=== PATIENT | female | born 1945 | race Caucasian/White ===

== ENCOUNTER 2020-01-21 15:36 | Observation (INO) | payer MEDICARE, OTHER ==
--- NOTE | 2020-01-21 16:13 | ER Document Report ---
ED Medical Screen (RME) - General Chief Complaint: General Weakness Stated Complaint: WEAKNESS Time Seen by Provider: 01/21/20 16:06 Primary Care Provider: JENNIFER BURT MD [Primary Care Provider] - Follow up as needed Notes: HPI: 74-year-old brought by EMS and sent to triage for evaluation of intermittent weakness in the upper extremities without headache vision change chest pain shortness of breath. States the symptoms are intermittent. Feels like she cannot grab things when they are occurring. States it began in the right arm last night around 8 PM and resolved and went to the left arm then back to the right arm this morning. States she has been having increasing falls over the last 3 to 4 weeks. States that she has had evaluation by her PCP for this intermittent weakness episodes because that this is not the first time it has occurred states that she recently had an echocardiogram and carotid Dopplers but does not know the results. PHYSICAL EXAMINATION: Strength is equal 5/5 bilateral upper extremities. Coordination is normal in the upper extremities. Limited exam in triage. No facial droop. No slurred speech. Patient is alert and oriented x3. Lung sounds are clear to auscultation with regular rate and rhythm I have greeted and performed a rapid initial assessment of this patient. A comprehensive ED assessment and evaluation of the patient, analysis of test results and completion of medical decision making process will be conducted by an additional ED providers. - Related Data Allergies/Adverse Reactions: Unable to Assess Allergy (Unverified 01/21/20 15:58) Past Medical History - Social History Frequency of alcohol use: None Drug Abuse: None Physical Exam - Vital signs Vitals: Temp Pulse Resp BP Pulse Ox 98.7 F 58 L 16 124/50 L 99 01/21/20 15:42 01/21/20 15:42 01/21/20 15:42 01/21/20 15:42 01/21/20 15:42 Course - Vital Signs Vital signs: Temp Pulse Resp BP Pulse Ox 98.7 F 58 L 16 124/50 L 99 01/21/20 15:42 01/21/20 15:42 01/21/20 15:42 01/21/20 15:42 01/21/20 15:42 Doctor's Discharge - Discharge Referrals: JENNIFER BURT MD [Primary Care Provider] - Follow up as needed
[2020-01-21 17:22] LABS: ALBUMIN 3.6 g/dL (3.5-5.0); ALKALINE PHOSPHATASE 55 U/L (38-126); ANION GAP 6 (5-19); ASPARTATE AMINO TRANSFERASE 26 U/L (14-36); BILIRUBIN,TOTAL 0.3 mg/dL (0.2-1.3); BLOOD UREA NITROGEN 17 mg/dL (7-20); CALCIUM 8.3 mg/dL (8.4-10.2); CARBON DIOXIDE 32 mmol/L (22-30); CHLORIDE 100 mmol/L (98-107); CREATINE KINASE 54 U/L (30-135); GLUCOSE 91 mg/dL (75-110); POTASSIUM 3.6 mmol/L (3.6-5.0); TOTAL PROTEIN 6.4 g/dL (6.3-8.2)
--- NOTE | 2020-01-21 17:22 | RADIOLOGY REPORT (SQ) ---
EXAM DESCRIPTION: CHEST 2 VIEWS IMAGES COMPLETED DATE/TIME: 01/21/2020 5:14 pm REASON FOR STUDY: weakness COMPARISON: None. TECHNIQUE: Frontal and lateral radiographic views of the chest acquired. NUMBER OF VIEWS: Two view. LIMITATIONS: None. FINDINGS: LUNGS AND PLEURA: No pneumothorax. Patchy airspace disease in the left lung base. No ple ural effusion. MEDIASTINUM AND HILAR STRUCTURES: No contour abnormalities. HEART AND VASCULAR STRUCTURES: Heart normal size. BONES: No acute findings. HARDWARE: Thoracolumbar fusion hardware. OTHER: No other significant finding. IMPRESSION: Patchy airspace disease in the left lung base. TECHNICAL DOCUMENTATION: JOB ID: [id number] [place]-72 2010 [employer]- All Rights Reserved Reading location - IP/workstation name: [email or web address]
[2020-01-21 17:27] LABS: ABSOLUTE BASOPHILS # (AUTO) 0.1 10^3/uL (0.0-0.2); ABSOLUTE EOSINOPHILS # (AUTO) 1.4 10^3/uL (0.0-0.6); ABSOLUTE LYMPHOCYTES (AUTO) 3.2 10^3/uL (0.5-4.7); ABSOLUTE MONOCYTES (AUTO) 0.7 10^3/uL (0.1-1.4); ABSOLUTE NEUT (AUTO) 5.2 10^3/uL (1.7-8.2); BASOPHILS % (AUTO) 0.6 % (0-2); HEMATOCRIT 39.9 % (36.0-47.0); LYMPHOCYTES % (AUTO) 30.4 % (13-45); MEAN CORPUSCULAR HGB CONC 32.7 g/dL (32.0-36.0); MEAN CORPUSCULAR VOLUME 89 fl (80-97); MONOCYTES % (AUTO) 6.4 % (3-13); PLATELET COUNT 107 10^3/uL (150-450); RED BLOOD COUNT 4.49 10^6/uL (3.72-5.28); SEGMENTED NEUTROPHILS % (AUTO) 49.6 % (42-78); TOTAL CELLS COUNTED % (AUTO) 100 %; WHITE BLOOD COUNT 10.5 10^3/uL (4.0-10.5)
[2020-01-21 17:28] LABS: APPEARANCE,URINE CLEAR; BILIRUBIN,URINE NEGATIVE (NEGATIVE); COLOR,URINE STRAW; GLUCOSE, URINE NEGATIVE (NEGATIVE); KETONES,URINE NEGATIVE (NEGATIVE); LEUKOCYTE ESTERASE,URINE TRACE (NEGATIVE); NITRITE,URINE NEGATIVE (NEGATIVE); PROTEIN,URINE NEGATIVE (NEGATIVE); URINE SPECIFIC GRAVITY 1.008; UROBILINOGEN,URINE NEGATIVE mg/dL (<2.0)
--- NOTE | 2020-01-21 17:38 | RADIOLOGY REPORT (SQ) ---
EXAM DESCRIPTION: CT HEAD WITHOUT IMAGES COMPLETED DATE/TIME: 01/21/2020 5:23 pm REASON FOR STUDY: weakness COMPARISON: None. TECHNIQUE: Axial images acquired through the brain without intravenous contrast. Images reviewed wit h bone, brain and subdural windows. Images stored on PACS. All CT scanners at this facility use dose modulation, iterative reconstruction, and/or weight based d osing when appropriate to reduce radiation dose to as low as reasonably achievable (ALARA). [facility]: Dose Right [facility]: CareDose [facility]: Dose Right [facility]: Teradose 4D [facility]: IZEA RADIATION DOSE: CT Rad equipment meets quality standard of care and radiation dose reduction techniq ues were employed. CTDIvol: 53.2 mGy. DLP: 1097 mGy-cm.. LIMITATIONS: None. FINDINGS: VENTRICLES: Normal size and contour. CEREBRUM: No masses. No hemorrhage. No midline shift. Age appropriate white matter. No evidence for a cute infarction. CEREBELLUM: No masses. No hemorrhage. No alteration of density. No evidence for acute infarction. EXTRA-AXIAL SPACES: No fluid collections. ORBITS AND GLOBE: No intra- or extraconal masses. Normal contour of globe without masses. CALVARIUM: No fracture. PARANASAL SINUSES: No fluid or mucosal thickening. SOFT TISSUES: No mass or hematoma. OTHER: No other significant finding. IMPRESSION: NO ACUTE INTRACRANIAL FINDINGS. EVIDENCE OF ACUTE STROKE: NO. TECHNICAL DOCUMENTATION: JOB ID: [id number] [place]-72 Quality ID # [id number]: Final reports with documentation of one or more dose reduction techniques (e.g., Au tomated exposure control, adjustment of the mA and/or kV according to patient size, use of iterative reconstruction technique) 2010 [employer]- All Rights Reserved Reading location - IP/workstation name: [email or web address]
[2020-01-21] MEDS ORDERED: ASPIRIN 81 MG TABLET, ENT COATED PO ONE (20:47)
--- NOTE | 2020-01-21 21:01 | ER Document Report ---
Entered by DEMIAN LO SCRIBE 01/21/202038 Acting as scribe for:MIRIAM WEBSTER IV, MD ED General - General Chief Complaint: General Weakness Stated Complaint: WEAKNESS Time Seen by Provider: 01/21/20 16:06 Primary Care Provider: JENNIFER BURT MD [COMMUNITY BASED STAFF] - Follow up as needed Mode of Arrival: Medic Information source: Patient, Relative - Daughter Notes: This 74 year old female patient with a history of hypertension brought in by EMS from home presents to the ED today with complaints of intermittent weakness in right upper extremity with right facial droop for the past x1 month, worse yesterday evening. Patient states that she has difficulty grasping objects and notes numbness to the right-side of her body during this episodes. Daughter at bedside states that the patient had an episode while in the waiting room where it seemed like her lower extremities were shaking and the left lower extremity was "pulling in and drawing out." Daughter also mentions that the patient had a near-syncopal episode with dizziness and lightheadedness that occurred yesterday. Patient reports that she was going from a sitting to standing position at that time and was caught by her son-in-law who helped her back to bed. Denies fever, chills, or cough, but reports an episode where she would get really hot and diaphoretic, then would become really cold for last x3-4 days. Patient mentions that she recently had an echocardiogram and carotid ultrasound at her PCP's office in [place] for generalized weakness, but has not received the results yet. - Related Data Allergies/Adverse Reactions: Unable to Assess Allergy (Unverified 01/21/20 15:58) Past Medical History - General Information source: Patient - Social History Smoking Status: Never Smoker Cigarette use (# per day): No Chew tobacco use (# tins/day): No Smoking Education Provided: No Frequency of alcohol use: None Drug Abuse: None Family History: Reviewed & Not Pertinent Patient has suicidal ideation: No Patient has homicidal ideation: No - Past Medical History Cardiac Medical History: Reports: Hx Hypertension Psychiatric Medical History: Reports: Hx Anxiety, Hx Depression Past Surgical History: Reports: Hx Orthopedic Surgery - bilateral shoulder Review of Systems - Review of Systems Constitutional: See HPI, Diaphoresis, Weakness. denies: Chills, Fever EENT: No symptoms reported Cardiovascular: See HPI, Syncope - near, Dizziness, Lightheaded Respiratory: See HPI. denies: Cough Gastrointestinal: No symptoms reported Genitourinary: No symptoms reported Female Genitourinary: No symptoms reported Musculoskeletal: No symptoms reported Skin: No symptoms reported Hematologic/Lymphatic: No symptoms reported Neurological/Psychological: See HPI, Numbness -: Yes All other systems reviewed and negative Physical Exam - Vital signs Vitals: Temp Pulse Resp BP Pulse Ox 98.7 F 58 L 16 124/50 L 99 01/21/20 15:42 01/21/20 15:42 01/21/20 15:42 01/21/20 15:42 01/21/20 15:42 - General General appearance: Alert In distress: None - HEENT Head: Normocephalic, Atraumatic Eyes: Normal Extraocular movements intact: Yes Pupils: PERRL - Respiratory Respiratory status: No respiratory distress Chest status: Nontender Breath sounds: Normal Chest palpation: Normal - Cardiovascular Rhythm: Regular Heart sounds: Normal auscultation Murmur: No Friction rub: No Gallop: None auscultated - Abdominal Inspection: Normal Distension: No distension Bowel sounds: Normal Tenderness: Nontender - Abdomen soft Organomegaly: No organomegaly - Back Back: Normal, Nontender - Extremities General upper extremity: Normal inspection General lower extremity: Normal inspection - Neurological Neuro grossly intact: Yes Cognition: Normal Orientation: AAOx4 [place] Coma Scale Eye Opening: Spontaneous [place] Coma Scale Verbal: Oriented Sis Coma Scale Motor: Obeys Commands Sis Coma Scale Total: 15 Speech: Normal Cranial nerves: No: Facial palsy, Forehead sparing, Gaze palsy Additional motor exam normals: Equal cutter head sharpener. No: Pronator drift - Psychological Associated symptoms: Normal affect, Normal mood - Skin Skin Temperature: Warm Skin Moisture: Dry Skin Color: Normal Course - Re-evaluation Re-evalutation: 01/21/20 20:57 Results of ED MSE discussed with patient and patient's daughter. Concern for staccato TIAs discussed with patient and patient's daughter. Recommendation for admission for inpatient evaluation with MRI and further risk stratification recommended to patient. Patient agreed with admission. - Vital Signs Vital signs: Temp Pulse Resp BP Pulse Ox 98.2 F 62 20 134/48 H 95 01/21/20 17:58 01/21/20 17:58 01/21/20 19:01 01/21/20 19:01 01/21/20 19:01 - Laboratory Result Diagrams: 01/21/20 16:38 01/21/20 16:38 Laboratory results interpreted by me: 01/21/20 01/21/20 01/21/20 16:38 16:38 16:38 RDW 15.0 H Plt Count 107 L Eos % (Auto) 13.0 H Absolute Eos (auto) 1.4 H Carbon Dioxide 32 H Creatinine 1.75 H Est GFR ( Amer) 34 L Est GFR (MDRD) Non-Af 28 L Calcium 8.3 L Ur Leukocyte Esterase TRACE H - Diagnostic Test Radiology reviewed: Reports reviewed - EKG Interpretation by Me Additional EKG results interpreted by me: 01/21/20 20:58 EKG obtained on 07/2019 at 1651 hrs. was interpreted by this MD. Findings: Sinus bradycardia, rate 53, P waves preceding QRS complexes, QRS complexes appear narrow, there are no obvious patterns of ST segment elevation or de pression present to suggest acute myocardial ischemia or infarction. Impression sinus bradycardia with nonspecific ST segments. - Consults Dr. Chisholm Time consulted: 21:28 Reason for consultation: 01/21/20 21:28 staccato tia symptoms Consulted provider: will come to ER Discharge - Discharge Clinical Impression: Crescendo transient ischemic attacks, Renal insufficiency Condition: Stable Disposition: ADMITTED OBSERVATION Admitting Provider: Phan (Hospitalist) Unit Admitted: Telemetry Referrals: JENNIFER BURT MD [COMMUNITY BASED STAFF] - Follow up as needed ED NIH Stroke Scale - NIH Stroke Scale When completed:: Protocol *: 1. NIH scale should be completed with appropriate accompanying assessment tools. *: 2. The NIH should reflect what the patient is capable of doing and should not be coached by the clinician. 1a. Level of Consciousness: 0=Alert;keenly responsive -: 1=Drowsy -: 2=Obtunded -: 3=Coma/unresponsive or reflex to noxious stimuli. 1a. Responses: 0 1b. Orientation Questions: a. What month is it? -: b. How old are you? -: 0=Answers both questions correctly. -: 1=Answers one question correctly or patient is intubated or has orotracheal trauma. -: 2=Answers neither question correctly. 1b. Responses: 0 1c. Response to commands: a. Open and close eyes? -: b. Floor Trader and release hand? -: Credit is given despite weakness. Demonstration of task is permitted. Substitute command if hands cannot be used. -: 0=Performs both tasks correctly -: 1=Performs one task correctly -: 2=Performs neither task correctly 1c. Responses: 0 2. Gaze: Establish eye contact and instruct patient to "Follow my finger" -: 0=Normal -: 1=Partial gaze palsy. Gaze is abnormal in one or both eyes, but where forced deviation or total gaze paresis is not present. -: 2=Forced deviation or total gaze paresis. 2. Responses: 0 3. Visual Rucker: Sees fingers in all four quadrants. -: 0=No visual loss. -: 1=Partial hemianopsia. -: 2=Complete hemianopsia. -: 3=Bilateral hemianopsia (including Cortical blindness) 3. Responses: 0 4. Facial Movement: Instruct patient to: -: a. Show me your teeth -: b. Raise your eyebrows -: c. Close your eyes -: d. Smile -: 0=Normal symmetrical movement -: 1=Minor paralysis (flattened nasolabial fold, asymmetry on smiling). -: 2=Partial paralysis (total or near total paralysis of lower face). -: 3=Complete paralysis of upper and lower face 4. Responses: 0 5. Motor functions (left arm): Alternate sides and extend each arm with palms down (90 degrees if sitting or 45 degrees for supine). -: 0=No drift;limb holds for full 10 seconds. -: 1=Drift; limb holds but drifts down before full 10 seconds, but does not hit bed. -: 2=Some effort against gravity; limb cannot get to or maintain position. -: 3=No effort against gravity; limb falls. -: 4=No movement. -: UN=Amputation, joint fusion, explain in comments. 5. Responses (left arm): 0 5. Motor Functions (right arm): Alternate sides and extend each arm with palms down (90 degrees if sitting or 45 degrees for supine). -: 0=No drift;limb holds for full 10 seconds. -: 1=Drift; limb holds but drifts down before full 10 seconds, but does not hit bed. -: 2=Some effort against gravity; limb cannot get to or maintain position. -: 3=No effort against gravity; limb falls. -: 4=No movement. -: UN=Amputation, joint fusion, explain in comments. 5. Responses (right arm): 0 6. Motor Functions (left leg): With patient lying supine, alternate sides and extend each leg (30 degrees always while supine). -: 0=No drift, leg holds position for full 5 seconds -: 1=Drift; leg falls before full 5 seconds but does not hit bed. -: 2=Some effort against gravity, leg falls to bed but some effort against gravity. -: 3=No effort against gravity, leg falls to bed immediately. -: 4=No movement. -: UN=Amputation, joint fusion; explain in comments. 6. Responses (left leg): 0 6. Motor Functions (right leg): With patient lying supine, alternate sides and extend each leg (30 degrees always while supine). -: 0=No drift, leg holds position for full 5 seconds -: 1=Drift; leg falls before full 5 seconds but does not hit bed. -: 2=Some effort against gravity, leg falls to bed but some effort against gravity. -: 3=No effort against gravity, leg falls to bed immediately. -: 4=No movement. -: UN=Amputation, joint fusion; explain in comments. 6. Responses (right leg): 0 7. Limb Ataxia: With eyes open instruct patient to: -: a. "Touch your finger to your nose". -: b. "Touch your heel to your delcid" -: 0=Absent -: 1=Present in one limb. -: 2=Present in two limbs. -: UN=Amputation or joint fusion; explain in comments. 7. Responses: 0 8. Sensory: Test sensation using pinprick or noxious stimuli. Test as many body parts as possible. -: 0=Normal;no sensory loss -: 1=Mile to moderate sensory loss (patient feels pin prick but is less sharp on affected side). -: 2=Severe or total sensory loss. 8. Responses: 0 9. Best Language: Instruct patient to: -: a. "Describe what you see in this picture." -: b. "Name the items in this picture." -: c. "Read these sentences." -: 0=No aphasia, normal -: 1=Mild to moderate aphasia. -: 2=Severe aphasia -: 3=Mute, global aphasia, no usable speech or auditory comprehension. 9. Responses: 0 10. Articulation, Dysarthia: Instruct patient to: -: "Read these words" or "Repeat these words" -: 0=Normal -: 1=Mild to moderate; patient may slur some words but can be understood without difficulty. -: 2=Severe; patients speech so slurred as to be unintelligible in the absence of dysphasia. -: UN=Intubated or other physical barrier, explain in comments. 10. Responses: 0 11. Extinction or inattention: 0=No abnormality -: 1= Visual, tactile, auditory, spatial, or personal inattention or extinction to bilateral simulation in one or the sensory modalities. -: 2=Profound hernandez-inattention or hernandez-inattention to more than one modality; does not recognize own hand. 11. Responses: 0 Total Score: 0 I personally performed the services described in the documentation, reviewed and edited the documentation which was dictated to the scribe in my presence, and it accurately records my words and actions.
[2020-01-21] MEDS ORDERED: NORMAL SALINE 1000 ML 1,000 ML IV ONE (21:29)
--- NOTE | 2020-01-21 22:47 | PDOC H&P ---
History of Present Illness History of Present Illness: KRISTA NGUYỄN is a 74 year old female with a history of gastroparesis but claims she is not diabetic, hypertension, hyperlipidemia, and who presents today with an inconsistent story depending on to whom she is speaking. She told the ED triage nurse that she was having generalized weakness in both arms. She told ER provider she was having right-sided facial droop and right arm weakness. She told me that she was having weakness in her legs and that her right arm "feels like it is not part of my body." She also said that she felt like her head was not a part of her body. She never said anything to me about her left arm, nor did she say anything about any facial droop. She said is been happening off and on for several days. She says she had an episode like this several months ago but it spontaneously resolved. She is not had any blurred vision or slurred speech. She has no prior history of stroke. She also seems to have a history of chronic kidney disease. She is not a smoker. She denies a family history of stroke but says people in her family have had "mini strokes."When she was telling me about her right arm feeling like it was dissociated from her body, she was picking up a large [employer] bag and folding up the top and then handing it to her daughter with her right hand. 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 She spoke in complete sentences and did not appear to have any trouble finding words. Her primary care provider is a Dr. Stewart William in [place]. Past Medical History Cardiac Medical History: Reports: Hypertension Psychiatric Medical History: Reports: Depression Past Surgical History Past Surgical History: Reports: Orthopedic Surgery - bilateral shoulder Social History Smoking Status: Never Smoker Family History Family History: Reviewed & Not Pertinent Parental Family History Reviewed: Yes Children Family History Reviewed: Yes Sibling(s) Family History Reviewed.: Yes Medication/Allergy Allergies/Adverse Reactions: Unable to Assess Allergy (Unverified 01/21/20 15:58) Review of Systems All systems: reviewed and no additional remarkable complaints except as stated - All systems were reviewed and were negative except as noted in the HPI Physical Exam Vital Signs: Temp Pulse Resp BP Pulse Ox 98.2 F 62 20 134/48 H 95 01/21/20 17:58 01/21/20 17:58 01/21/20 19:01 01/21/20 19:01 01/21/20 19:01 Intake & Output 01/20/20 01/21/20 01/22/20 06:59 06:59 06:59 Weight 59.421 kg General appearance: PRESENT: no acute distress, cooperative, hard of hearing Head exam: PRESENT: atraumatic, normocephalic Eye exam: PRESENT: EOMI, PERRLA. ABSENT: conjunctival injection, nystagmus, scleral icterus Ear exam: PRESENT: normal external ear exam Mouth exam: PRESENT: moist, neck supple Throat exam: ABSENT: post pharyngeal erythema Neck exam: PRESENT: full ROM. ABSENT: carotid bruit, JVD, lymphadenopathy, meningismus, tenderness, thyromegaly Respiratory exam: PRESENT: clear to auscultation russ, symmetrical, unlabored. ABSENT: accessory muscle use, chest wall tenderness, crackles, prolonged expiratory phas, rhonchi, tachypnea, wheezes Cardiovascular exam: PRESENT: RRR, +S1, +S2 Pulses: PRESENT: normal carotid pulses Vascular exam: PRESENT: normal capillary refill GI/Abdominal exam: PRESENT: normal bowel sounds, soft. ABSENT: distended, guarding, rebound, tenderness Extremities exam: ABSENT: clubbing, pedal edema Musculoskeletal exam: PRESENT: normal inspection. ABSENT: deformity Neurological exam: PRESENT: alert, awake, oriented to person, oriented to place, oriented to time, oriented to situation, CN II-XII grossly intact. ABSENT: motor sensory deficit Psychiatric exam: PRESENT: anxious Skin exam: PRESENT: dry, warm Results Laboratory Results: 01/21/20 16:38 01/21/20 16:38 01/21/20 01/21/20 01/21/20 16:38 16:38 16:38 WBC 10.5 RBC 4.49 Hgb 13.0 Hct 39.9 MCV 89 MCH 29.0 MCHC 32.7 RDW 15.0 H Plt Count 107 L Seg Neutrophils % 49.6 Sodium 137.5 Potassium 3.6 Chloride 100 Carbon Dioxide 32 H Anion Gap 6 BUN 17 Creatinine 1.75 H Est GFR ( Amer) 34 L Glucose 91 Calcium 8.3 L Total Bilirubin 0.3 AST 26 Alkaline Phosphatase 55 Total Protein 6.4 Albumin 3.6 Urine Color STRAW Urine Appearance CLEAR Urine pH 6.0 Ur Specific [place] 1.008 Urine Protein NEGATIVE Urine Glucose (UA) NEGATIVE Urine Ketones NEGATIVE Urine Blood NEGATIVE Urine Nitrite NEGATIVE Ur Leukocyte Esterase TRACE H Urine WBC (Auto) 3 Urine RBC (Auto) 0 01/21/20 01/21/20 16:38 16:38 Creatine Kinase 54 Troponin I < 0.012 Impressions: Chest X-Ray 01/21/20 16:09 IMPRESSION: Patchy airspace disease in the left lung base. Head CT 01/21/20 16:09 IMPRESSION: NO ACUTE INTRACRANIAL FINDINGS. EVIDENCE OF ACUTE STROKE: NO. Assessment and Plan - Diagnosis (1) TIA (transient ischemic attack) Is this a current diagnosis for this admission?: Yes Plan: Her story is inconsistent, but given her risk factors we will evaluate her for stroke. We will get an MRI of the head and a carotid Doppler. We will put her on aspirin and statin. We will have her evaluated by physical therapy and Occupational Therapy. However, given the demonstration I saw with her right hand, which was the hand she said it been giving her problems, she may not need an occupational therapy evaluation at this time. (2) Chronic kidney disease (CKD), stage III (moderate) Is this a current diagnosis for this admission?: Yes Plan: Likely at baseline given her BUN is only 17 (3) Hypertension Qualifiers: Hypertension type: essential hypertension Qualified Code(s): I10 - Essential (primary) hypertension Is this a current diagnosis for this admission?: Yes Plan: Permissive hypertension for now, will resume her home medications in 24 hours (4) Hyperlipidemia Qualifiers: Hyperlipidemia type: other hyperlipidemia Qualified Code(s): E78.49 - Other hyperlipidemia; E78.4 - Other hyperlipidemia Is this a current diagnosis for this admission?: Yes Plan: She is on Crestor at home. We will have that on formulary, so we will substitute with atorvastatin. - Time Time Spent with patient: 35 or more minutes Anticipated Discharge Disposition: Home, Self Care Anticipated Discharge Timeframe: within 48 hours
--- NOTE | 2020-01-22 01:17 | EKG REPORT ---
SEVERITY:- DEFECTIVE ECG - SINUS BRADYCARDIA.,BASELINE ARTIFACTPOSSIBLY NORMQL.,REPEAT EKG. : Confirmed by: Aisha Walker MD 22-Jan-2020 01:16:47
[2020-01-22] MEDS ORDERED: ACETAMINOPHEN 325 MG TABLET PO PRN (02:09)
[2020-01-22] MEDS: HEPARIN SOD (PORCINE) 5,000 UNIT/ML 1 ML VIAL SUBCUT SCH ×2 (05:13→13:09)
[2020-01-22 05:56] LABS: HEMATOCRIT 39.1 % (36.0-47.0); HEMOGLOBIN 12.8 g/dL (12.0-15.5); MEAN CORPUSCULAR HEMOGLOBIN 29.1 pg (27.0-33.4); MEAN CORPUSCULAR HGB CONC 32.8 g/dL (32.0-36.0); MEAN CORPUSCULAR VOLUME 89 fl (80-97); RED CELL DISTRIBUTION WIDTH 15.2 % (11.5-14.0)
[2020-01-22 06:13] LABS: BLOOD UREA NITROGEN 14 mg/dL (7-20); CHOLESTEROL 154.97 mg/dL (0-200); GLUCOSE 94 mg/dL (75-110); POTASSIUM 3.4 mmol/L (3.6-5.0); TRIGLYCERIDES 293 mg/dL (<150)
[2020-01-22 06:18] LABS: CARBON DIOXIDE 33 mmol/L (22-30); CHLORIDE 105 mmol/L (98-107)
[2020-01-22 06:24] LABS: DIRECT LDL 75 mg/dL (<100)
[2020-01-22 06:26] LABS: ANION GAP 3 (5-19); VLDL CHOLESTEROL 58.6 mg/dL (10-31)
[2020-01-22 06:35] LABS: PLATELET COUNT 88 10^3/uL (150-450)
[2020-01-22] MEDS ORDERED: ASPIRIN 81 MG TABLET, CHEWABLE PO SCH (10:00)
--- NOTE | 2020-01-22 12:17 | RADIOLOGY REPORT (SQ) ---
EXAM DESCRIPTION: CAROTID DOPPLER IMAGES COMPLETED DATE/TIME: 01/22/2020 12:07 pm REASON FOR STUDY: tia COMPARISON: None. TECHNIQUE: Grayscale ultrasound, Doppler velocity and spectra, and color Doppler images acquired of the extra-cranial carotid and vertebral arteries. Images stored on PACS. LIMITATIONS: None. FINDINGS: RIGHT CAROTID CCA Velocities: Within normal limits. ICA Velocities Peak systolic 1.47 m/s. End diastolic 0.42 m/s. Proximal ICA/CCA peak systolic ratio 1.7. Spectra normal. No significant plaque. LEFT CAROTID CCA Velocities: Within normal limits. ICA Velocities Peak systolic 1.48 m/s. End diastolic 0.43 m/s. Proximal ICA/CCA peak systolic ratio 1.3. Spectra normal. No significant plaque. VERTEBRAL ARTERIES: Antegrade flow. Normal waveforms. SUBCLAVIAN ARTERIES: No finding. OTHER: No other significant finding. IMPRESSION: Slightly elevated velocities which appears to be secondary to vessel tortuosity. No sig nificant plaque formation. COMMENT: Quality ID #[id number]: Velocity criteria are extrapolated from the diameter data as defined by t he Society of Radiologists in Ultrasound Consensus Conference. Radiology 2003: 229; 340-346. TECHNICAL DOCUMENTATION: JOB ID: [id number] 2010 [employer]- All Rights Reserved Reading location - IP/workstation name: [email or web address]
--- NOTE | 2020-01-22 12:36 | RADIOLOGY REPORT (SQ) ---
EXAM DESCRIPTION: MRI HEAD WITHOUT IMAGES COMPLETED DATE/TIME: 01/22/2020 12:24 pm REASON FOR STUDY: neuro deficit, acute, stroke suspected COMPARISON: None. TECHNIQUE: Multiplanar imaging includes non-contrasted T1, T2, FLAIR, and diffusion with ADC map seq uences. Images stored on PACS. LIMITATIONS: None. FINDINGS: ANATOMY: No anomalies. Normal vascular flow voids. Pituitary fossa normal. CSF SPACES: Normal in size and contour. No hemorrhage. CEREBRUM: Sulci and gyri normal in size and contour. Normal white matter signal on FLAIR imaging. No evidence of hemorrhage, mass, or extraaxial fluid collection. POSTERIOR FOSSA: No signal alteration. No hemorrhage. No edema, masses or mass effect. Internal kev tory canals, cerebello-pontine angles, mastoids normal. DIFFUSION IMAGING: Negative for acute or sub-acute infarction. ORBITS: No masses. Globes normal. PARANASAL SINUSES: No fluid levels. Mucosa normal. OTHER: No other significant finding. IMPRESSION: NORMAL MRI OF THE BRAIN WITHOUT INTRAVENOUS GADOLINIUM CONTRAST. EVIDENCE OF ACUTE STROKE: NO. TECHNICAL DOCUMENTATION: JOB ID: [id number] [employer]- All Rights Reserved Reading location - IP/workstation name: [email or web address]
[2020-01-22 15:10] VITALS: BP 125/42
[2020-01-22] MEDS ORDERED: ATORVASTATIN CALCIUM 40 MG TABLET PO SCH (22:00)
== END 2020-01-22 15:30 | disposition home or self-care (01) ==
LOC: ER 15:36 → EH 22:42 → 5 23:56
PROVIDERS: ADMIT Family Medicine; ATTEND Registered Nurse
DX: G45.9 Transient cerebral ischemic attack, unspecified (principal); E78.5 Hyperlipidemia, unspecified; R53.1 Weakness; R29.810 Facial weakness; F32.9 Major depressive disorder, single episode, unspecified; H91.90 Unspecified hearing loss, unspecified ear; I12.9 Hypertensive chronic kidney disease with stage 1 through stage 4 chronic kidney disease, or unspecified chronic kidney disease; N18.3 Chronic kidney disease, stage 3 (moderate); R40.2412 Glasgow coma scale score 13-15, at arrival to emergency department; R00.1 Bradycardia, unspecified
CPT/HCPCS: 93005; 99285; 96360; 36415 ×2; 82550; 85025; 85027; 80048; 80053; 81001; 84484; 80061; 93880; 70551; 71046; 70450; 93010; 97116; 97163; A9270 ×3; J3490; J7030